=== PATIENT | female | born 1980 | race Hispanic/Latino ===

== ENCOUNTER 2019-08-14 20:22 | Emergency (ER) | payer SELFPAY ==
[2019-08-14 23:12] LABS: Bilirubin,Urine NEG (Negative); Blood,Urine NEG (Negative); Color,Urine Yellow (Yellow); Mucus,Urine FEW /HPF; Protein,Urine <15 mg/dL mg/dL (Negative)
[2019-08-14 23:15] LABS: Basophils # (Auto) 0.1 K/mm3 (0.0-0.1); Basophils % (Auto) 1.4 % (0.0-1.8); Eosinophils % (Auto) 0.6 % (0.0-4.3); Lymphocytes # (Auto) 2.6 K/mm3 (1.2-5.4); Lymphocytes % (Auto) 34.4 % (13.4-35.0); Mean Corpuscular HGB Conc 29 % (30-34); Monocytes # (Auto) 0.6 K/mm3 (0.0-0.8); Monocytes % (Auto) 8.3 % (0.0-7.3); Platelet Count 567 K/mm3 (140-440); Red Blood Count 5.09 M/mm3 (3.65-5.03); Red Cell Distribution Width 19.5 % (13.2-15.2)
[2019-08-14 23:16] LABS: Hematocrit 30.4 % (30.3-42.9); Hemoglobin 8.9 gm/dl (10.1-14.3); Mean Corpuscular Volume 60 fl (79-97)
[2019-08-14 23:38] LABS: Alanine Aminotransferase 13 units/L (7-56); Albumin 4.5 g/dL (3.9-5); BUN/Creatinine Ratio 22; Blood Urea Nitrogen 11 mg/dL (7-17); Calcium 9.2 mg/dL (8.4-10.2); Hemolysis Index 9
--- NOTE | 2019-08-14 23:41 | Emergency Department Report ---
ED Back Pain/Injury HPI - General Chief Complaint: Abdominal Pain Stated Complaint: LEFT FLANK PAIN Time Seen by Provider: 08/14/19 23:34 Source: patient, EMS Limitations: No Limitations - History of Present Illness MD Complaint: back pain -: Gradual Similar Symptoms Previously: Yes Place: home Radiation: none Severity: mild, moderate Quality: dull, aching Consistency: constant Improves With: none Worsens With: none Associated Symptoms: difficulty urinating. denies: confusion, chest pain, difficulty walking, cough, constipation, headaches, rash, seizure, shortness of breath - Related Data Previous Rx's Medication Instructions Recorded Last Taken Type methOCARBAMOL [Robaxin TAB] 750 mg PO Q8H PRN #14 tablet 08/15/19 Unknown Rx predniSONE [Deltasone] 40 mg PO QDAY #10 tablet 08/15/19 Unknown Rx Allergies Allergy/AdvReac Type Severity Reaction Status Date / Time NSAIDS (Non-Steroidal Allergy Unknown Verified 08/14/19 20:26 Anti-Inflamma Penicillins Allergy Rash Verified 08/14/19 20:26 ED Review of Systems ROS: Stated complaint: LEFT FLANK PAIN Other details as noted in HPI Comment: All other systems reviewed and negative ED Past Medical Hx - Past Medical History Previous Medical History?: Yes Additional medical history: kidney stones, hypothyroid, fibermyalgia, migraines, depression, anxiety - Medications Home Medications: Home Medications Medication Instructions Recorded Confirmed Last Taken Type methOCARBAMOL [Robaxin TAB] 750 mg PO Q8H PRN #14 tablet 08/15/19 Unknown Rx predniSONE [Deltasone] 40 mg PO QDAY #10 tablet 08/15/19 Unknown Rx ED Physical Exam - General Limitations: No Limitations General appearance: alert, in no apparent distress - Head Head exam: Present: atraumatic, normocephalic - Eye Eye exam: Present: normal appearance, PERRL, EOMI - ENT ENT exam: Present: mucous membranes moist - Neck Neck exam: Present: normal inspection - Respiratory Respiratory exam: Present: normal lung sounds bilaterally. Absent: respiratory distress - Cardiovascular Cardiovascular Exam: Present: regular rate, normal rhythm. Absent: systolic murmur, diastolic murmur, rubs, gallop - GI/Abdominal GI/Abdominal exam: Present: soft, normal bowel sounds - Extremities Exam Extremities exam: Present: normal inspection - Back Exam Back exam: Present: normal inspection, CVA tenderness (L) (social history left CVA region with with percussion and palpation and range of motion), paraspinal tenderness - Neurological Exam Neurological exam: Present: alert, oriented X3, CN II-XII intact, normal gait, abnormal gait, motor sensory deficit - Psychiatric Psychiatric exam: Present: normal affect, normal mood - Skin Skin exam: Present: warm, dry, intact, normal color. Absent: rash ED Course Vital Signs 08/14/19 08/15/19 08/15/19 20:27 02:15 02:35 Temperature 98.8 F 98.4 F Pulse Rate 98 H 69 Respiratory 18 18 18 Rate Blood Pressure 147/87 127/81 Blood Pressure 127/81 [Left] O2 Sat by Pulse 100 100 Oximetry ED Medical Decision Making - Lab Data Result diagrams: 08/14/19 23:01 08/14/19 23:01 - Medical Decision Making The patient presents with acute onset of back pain after full last 6 hours associated with some urgency and dysuria has a strong suspicion for kidney stones. Laboratory data was benign no insufficiency and no hematuria no signs of any infectious processes. Clinically this patient can be ruled out for serious pathology given there is a completely normal neurological exam, no recent history of IV drug use, and no history of bowel or bladder incontinence, no perianal numbness/tingling, no constipation or urinary retention. Once the patient?s pain was adequately controlled, the patient was able to ambulate and be discharged in stable condition with anticipatory guidance provided. - Differential Diagnosis EPIDURAL MASS LESION, SPINAL STENOSIS, HERNIATED DISK , pyelonephritis Critical care attestation.: If time is entered above; I have spent that time in minutes in the direct care of this critically ill patient, excluding procedure time. ED Disposition Clinical Impression: Lumbago with sciatica, left side, Flank pain, Dysuria Disposition: DC-01 TO HOME OR SELFCARE Is pt being admited?: No Does the pt Need Aspirin: No Condition: Stable Instructions: Dysuria (ED) Additional Instructions: Please follow up with your Primary Care Doctor within 48-72 hours - call for an appointment. Laboratory data did not reveal any infectious processes and new urine was also cleaned. I have low suspicion for renal stones Ambulate as tolerated and no heavy lifting. Take prednisone as prescribed for pain with food, Robaxin as needed for muscle spasm- do not drive or make any important decisions while on this medication for it can make you drowsy. If you experience any worsening pain, swelling, numbness, weakness please return to ER Prescriptions: predniSONE [Deltasone] 40 mg PO QDAY #10 tablet methOCARBAMOL [Robaxin TAB] 750 mg PO Q8H PRN #14 tablet PRN Reason: Pain, Moderate (4-6) Referrals: KEHINDE COLVIN [Primary Care Provider] - 3-5 Days TEZ SAINZ MD [Staff Physician] - 3-5 Days
[2019-08-15] MEDS ORDERED: HYDROcodone/ACETAMINOPHEN 5-325 MG TAB PO ONE (02:08)
[2019-08-15] MEDS ORDERED: HYDROcodone/ACETAMINOPHEN 5-325 MG TAB ONE (02:12)
[2019-08-15 03:09] VITALS: BP 127/81
== END 2019-08-15 02:35 | disposition home or self-care (01) ==
LOC: ED 20:22
DX: M54.42 Lumbago with sciatica, left side (principal); R30.0 Dysuria; G43.909 Migraine, unspecified, not intractable, without status migrainosus; F32.9 Major depressive disorder, single episode, unspecified; F41.9 Anxiety disorder, unspecified; E03.9 Hypothyroidism, unspecified; Z87.442 Personal history of urinary calculi; Z88.6 Allergy status to analgesic agent; Z88.0 Allergy status to penicillin
CPT/HCPCS: 36415; 80053; 81001; 84703; 85025